=== PATIENT | male | born 1990 | race Caucasian/White ===

== ENCOUNTER 2018-07-31 14:55 | Emergency (ER) | payer BC, OTHER ==
[2018-07-31 15:05] VITALS: BP 111/71; PULSE 64; TEMP 97.6; BMI 21.7
[2018-07-31 16:06] LABS: ALBUMIN 4.5 g/dl (3.4-5.0); BILIRUBIN,TOTAL 0.7 mg/dl (0.2-1); CALCIUM 9.2 mg/dl (8.5-10); CREATININE 0.9 mg/dl (0.55-1.3); POTASSIUM 3.8 mmol/L (3.5-5.1); TOT PROT 6.9 g/dl (6.4-8.2)
[2018-07-31 16:17] LABS: BASO % 0.5 % (0-2.0); HEMATOCRIT 47.2 % (35.4-49); HEMOGLOBIN 15.4 GM/dl (11.7-16.9); LYMPH % 30.2 % (8-40); MCH 30.9 pg (25.7-33.7); MCHC 32.6 g/dl (32.0-35.9); MEAN CELL VOLUME 94.5 fl (80-96); MEAN PLT VOLUME 11.1 fl (7.5-11.1); MONO % 9.4 % (3.8-10.2); NEUT % 56.9 % (42.8-82.8); PLATELET COUNT 181 K/MM3 (134-434); RBC 4.99 M/mm3 (4.00-5.60); WHITE BLOOD COUNT 3.9 K/mm3 (4.0-10.8)
--- NOTE | 2018-07-31 16:33 | PDOC ---
Documentation entered by Dayna Torres SCRIBE, acting as scribe for Delilah Maya MD. Delilah Maya MD: This documentation has been prepared by the Brian hawkins Brenda, SCRIBE, under my direction and personally reviewed by me in its entirety. I confirm that the documentation accurately reflects all work, treatment, procedures, and medical decision making performed by me. History of Present Illness - General Chief Complaint: Palpitations Stated Complaint: PALPITATIONS, CHEST PAIN History Source: Patient Exam Limitations: No Limitations - History of Present Illness Initial Comments: 07/31/18 15:41 The patient is a 28 year old male, with a significant PMH of Anxiety,bipolar disorder and prostatitis who presents to the emergency department with chest palpitations. The patient reports having regular,fast chest palpitations yesterday afternoon lasting for 1 minute. He reports feeling dull,heavy chest pains following the palpitations. The patient reports contacting his PCP for hsi symptoms and was advised to come to the ED for an EKG. Patient reports that symptoms have subsided. He reports being on abilify for bipolar disorder, and having finished his antibiotics earlier this week for prostatitis. The patient denies recent travel and caffeine use. Denie headache, dizziness and leg swelling. Denies fever, chills, nausea, vomiting, diarrhea and constipation. Denies history of SVT. Allergies: NKA Social history: Denies any drug use. PCP: Dr. Sunday Escobar Past History - Past Medical History Allergies/Adverse Reactions: Allergies Allergy/AdvReac Type Severity Reaction Status Date / Time No Known Allergies Allergy Verified 07/31/18 14:56 Home Medications: Ambulatory Orders Aripiprazole [Abilify -] 10 mg PO DAILY 07/31/18 Lorazepam [Ativan] 0.25 mg PO BID 07/31/18 - Suicide/Smoking/Psychosocial Hx Smoking Status: No Number of Cigarettes Smoked Daily: 0 Review of Systems - Review of Systems Able to Perform ROS?: Yes Comments:: 07/31/18 15:41 GENERAL/CONSTITUTIONAL: No: fever, chills, weakness, loss of appetite. HEAD, EYES, EARS, NOSE AND THROAT: No: change in vision, ear pain, discharge, sore throat, throat swelling. CARDIOVASCULAR: + Chest Pain + palpitations No:, lightheadedness, syncope RESPIRATORY: No: cough, shortness of breath, wheezing, hemoptysis, stridor. GASTROINTESTINAL: No: nausea, vomiting, diarrhea, abdominal cramping, rectal bleeding, constipation. GENITOURINARY: No: dysuria, hematuria, frequency, urgency, flank pain. MUSCULOSKELETAL: No: back pain, neck pain, joint pain, muscle swelling or pain SKIN AND BREASTS: No: lesions, pallor, rash or easy bruising. NEUROLOGIC: No: headache, vertigo, paresthesias, weakness ENDOCRINE: No: unexplained weight gain or loss HEMATOLOGIC/LYMPHATIC: No: anemia, easy bleeding, swelling nodes. *Physical Exam - Vital Signs Last Vital Signs Temp Pulse Resp BP Pulse Ox 97.6 F 64 18 111/71 98 07/31/18 14:55 07/31/18 14:55 07/31/18 14:55 07/31/18 14:55 07/31/18 14:55 - Physical Exam Comments: 07/31/18 15:41 GENERAL: +Flattened affect. The patient is in no acute distress. HEAD: Normal with no signs of trauma. EYES: PERRLA, EOMI, sclera anicteric, conjunctiva clear. ENT: Ears normal, nares patent, oropharynx clear without exudates. Moist mucous membranes. NECK: Normal range of motion, supple without lymphadenopathy, JVD, or masses. LUNGS: Breath sounds equal, clear to auscultation bilaterally. No wheezes, and no crackles. HEART:Regular rate and rhythm, normal S1 and S2 without murmur, rub or gallop. ABDOMEN: Soft, nontender, normoactive bowel sounds. No guarding, no rebound. No masses palpable. EXTREMITIES: Normal range of motion, no edema. No clubbing or cyanosis. No erythema, or tenderness. NEUROLOGICAL: Cranial nerves II through XII grossly intact. Normal speech. No focal neurological deficits. MUSCULOSKELETAL: Back nontender to palpation, no CVA tenderness SKIN: Warm, Dry, normal turgor, no rashes or lesions noted. ED Treatment Course - LABORATORY CBC & Chemistry Diagram: 07/31/18 15:35 07/31/18 15:35 - ADDITIONAL ORDERS Additional order review: Laboratory Results 07/31/18 07/31/18 15:35 15:35 Sodium 139 Potassium 3.8 Chloride 104 Carbon Dioxide 29 Anion Gap 6 L BUN 17.0 Creatinine 0.9 Est GFR (CKD-EPI)AfAm 133.30 Est GFR (CKD-EPI)NonAf 115.01 Random Glucose 84 Calcium 9.2 Total Bilirubin 0.7 AST 25 ALT 34 Alkaline Phosphatase 92 Creatine Kinase 98 Troponin I < 0.03 Total Protein 6.9 Albumin 4.5 07/31/18 15:35 RBC 4.99 MCV 94.5 MCHC 32.6 RDW 12.0 MPV 11.1 Neutrophils % 56.9 Lymphocytes % 30.2 Monocytes % 9.4 Eosinophils % 3.0 Basophils % 0.5 Medical Decision Making - Medical Decision Making 07/31/18 16:20 28 yo M presenting with a complaint of transient palpitations yesterday with associated chest pain Palpitations self resolved No exertional symptoms Pt is currently asymptomatic ACS unlikely, though will send Trop Clinically signidicant PE unlikely given pt is Low risk wells and PERC negative Hyperthyroidism possible, will send TSH Electrolyte abnormality possible, will send CMP No medication levels to send off Arrhythmia is still a possibility (like SVT or paroxysmal Afib) Will send of basic labd EKG Laboratory Tests 07/31/18 07/31/18 07/31/18 15:35 15:35 15:35 WBC 3.9 L Hgb 15.4 Hct 47.2 Plt Count 181 Sodium 139 Potassium 3.8 Chloride 104 Carbon Dioxide 29 BUN 17.0 Creatinine 0.9 Random Glucose 84 Creatine Kinase 98 Troponin I < 0.03 EKG - Sinus rhythm, no ST elevation or depression Will discharge to home Will give copies of results 08/07/18 09:55 Pt to follow up with PMD for further assessment (? intermittent arrhythmia) *DC/Admit/Observation/Transfer Diagnosis at time of Disposition: Palpitations - Discharge Dispostion Disposition: HOME Condition at time of disposition: Stable Decision to Admit order: No - Referrals Referrals: Chun Escobar MD [Staff Physician] - - Patient Instructions Printed Discharge Instructions: DI for Palpitations Additional Instructions: Mr. Moss Return to the emergency department immediately with ANY new, persistent or worsening symptoms. Continue any medications as previously prescribed by your physician. You should follow up with your primary doctor as soon as possible regarding today's emergency department visit. . Please make sure your doctor reviews the results of your emergency evaluation. Thank you for coming to the [facility] today for your care. It was a pleasure to see you today. Please note that your evaluation is INCOMPLETE until you follow-up with your doctor. - Post Discharge Activity
--- NOTE | 2018-08-03 10:40 | EKG ---
Test Reason : Blood Pressure : / mmHG Vent. Rate : 070 BPM Atrial Rate : 070 BPM P-R Int : 142 ms QRS Dur : 096 ms QT Int : 400 ms P-R-T Axes : 055 095 077 degrees QTc Int : 432 ms NORMAL SINUS RHYTHM WITH SINUS ARRHYTHMIA RIGHTWARD AXIS BORDERLINE ECG NO PREVIOUS ECGS AVAILABLE Confirmed by NGOZI BELLO, AMINA ([id number]) on 08/03/2018 10:39:58 AM Referred By: MD HENDERSON Confirmed By:AMINA MELVIN MD
== END 2018-07-31 16:40 | disposition home or self-care (01) ==
LOC: FER 14:55
DX: R00.2 Palpitations (principal); F31.9 Bipolar disorder, unspecified; F41.9 Anxiety disorder, unspecified
CPT/HCPCS: 36415; 80053; 82550; 84443; 84484; 85025; 93005; 99284-25